=== PATIENT | male | born 1980 | race Caucasian/White ===

== ENCOUNTER 2016-08-07 08:14 | Day surgery (SDC) | payer BC ==
[~2016-08-07] VITALS: Ht 188 cm; Wt 129.0 kg
[~2016-08-07 08:14] MED LIST: HYDR-882 PO; ONDA4TAB7 PO
[2016-08-07] MEDS ORDERED: LACTATED RINGERS 1,000 ML IV SCH (08:53)
[2016-08-07 08:55] VITALS: BP 109/71
[2016-08-07] MEDS ORDERED: OMEP-110 PO (08:55)
[2016-08-07] MEDS ORDERED: FEXO60TA24 PO (08:55)
[2016-08-07] MEDS ORDERED: LIDOCAINE 1%, 2ML SQ PRN (09:00)
[2016-08-07] MEDS ORDERED: LIDOCAINE 1%, 2ML ONE (09:00)
[2016-08-07] MEDS ORDERED: FENTANYL PF 250 MCG/5ML ONE (09:39)
[2016-08-07] MEDS ORDERED: MIDAZOLAM 1 MG/ML, 2ML ONE (09:40)
[2016-08-07] MEDS ORDERED: LIDOCAINE/PF 1.5%-EPI 1:200K, 30ML ONE (10:06)
[2016-08-07] MEDS ORDERED: COCAINE TOPICAL SOLN 4%, 4ML ONE (10:06)
[2016-08-07] MEDS ORDERED: MUPIROCIN OINT 2%, 22GM ONE (10:06)
[2016-08-07] MEDS ORDERED: OXYMETAZOLINE NASAL SPRAY 0.05%, 15ML ONE (10:06)
[2016-08-07] MEDS ORDERED: NEOSTIGMINE 1 MG/ML, 10ML ONE (10:14)
[2016-08-07] MEDS ORDERED: PROPOFOL 10 MG/ML, 20ML ONE (10:14)
[2016-08-07] MEDS ORDERED: ROCURONIUM 10 MG/ML ONE (10:14)
[2016-08-07] MEDS ORDERED: GLYCOPYRROLATE 0.2MG/1ML ONE (10:14)
[2016-08-07] MEDS ORDERED: PROMETHAZINE 25 MG/ML, 1ML IV PRN (10:30)
[2016-08-07] MEDS ORDERED: ONDANSETRON 2MG/ML, 2ML IVPush PRN (10:30)
[2016-08-07] MEDS ORDERED: FENTANYL PF 100 MCG/2ML IV PRN (10:30)
[2016-08-07] MEDS ORDERED: ACETAMINOPHEN 325 MG TABLET PO PRN (10:30)
[2016-08-07] MEDS ORDERED: OXYcodone 5 MG/5 ML ORAL.SOL UDC PO PRN (10:30)
[2016-08-07] MEDS ORDERED: OXYcodone 5 MG/5 ML ORAL.SOL UDC ONE (11:35)
[2016-08-07] MEDS ORDERED: HYDROmorphone 1 MG/ML, 1ML ONE (11:54)
[2016-08-07] MEDS: HYDROmorphone 1 MG/ML, 1ML IV PRN ×2 (11:57→12:11)
[2016-08-07] MEDS ORDERED: HYDROmorphone 1 MG/ML, 1ML IV ONE (13:30)
[2016-08-07] MEDS ORDERED: HYDROmorphone 2 MG/ML, 1ML ONE (13:31)
== END 2016-08-07 16:55 | disposition home or self-care (01) ==
LOC: OUT 08:14
PROVIDERS: ATTEND Otolaryngology Facial Plastic Surgery
DX: J34.3 Hypertrophy of nasal turbinates (principal); J34.2 Deviated nasal septum; F17.210 Nicotine dependence, cigarettes, uncomplicated; K21.9 Gastro-esophageal reflux disease without esophagitis
CPT/HCPCS: 30140; 30520; 36415; 81003; 85025; J1170; J2250; J2704; J2710; J3010; J3490; J7120